=== PATIENT | male | born 1965 | race Caucasian/White ===

== ENCOUNTER 2017-05-24 17:14 | Emergency (ER) | payer MEDICAID, OTHER ==
[~2017-05-24] VITALS: Ht 177.8 cm; Wt 85.0 kg
[~2017-05-24 17:14] MED LIST: ALPR-138 PO; BACT800T5 PO; CEPH500C3 PO; LORT5TAB PO; NAPR550 PO; SULF-154 PO
[2017-05-24] MEDS ORDERED: SODIUM CHLOR 0.9% 1000 ML INJ 1,000 ML IV SCH (17:26)
[2017-05-24 17:28] VITALS: BP 165/84; PULSE 81; RESP 18; TEMP 98.4; O2SAT 97
[2017-05-24] MEDS ORDERED: FAMOTIDINE 20 MG/2 ML VIAL IV PUSH ONE (17:30)
[2017-05-24] MEDS ORDERED: RESP: ALBUTEROL 2.5 MG/3 ML NEB (SCH) INH ONE (17:30)
[2017-05-24] MEDS ORDERED: EPINEPHrine HCL (1:1000) 1 MG/ML VIAL IM ONE (17:30)
[2017-05-24] MEDS ORDERED: SODIUM CHLORIDE 0.9% FLUSH 10 ML FLUSH IV FLUSH PRN (17:30)
[2017-05-24 17:31] VITALS: O2SAT 97
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
[2017-05-24] MEDS ORDERED: HYDR-3366 PO (17:57)
[2017-05-24 18:25] VITALS: BP 131/65; PULSE 69; RESP 18; O2SAT 99
[2017-05-24] MEDS ORDERED: PRED-503 PO (18:35)
[2017-05-24] MEDS ORDERED: DIPH25CA PO (18:35)
[2017-05-24] MEDS ORDERED: EPIP0.3I IM (18:35)
[2017-05-24] MEDS ORDERED: ZANT150T2 PO (18:35)
[2017-05-24 19:14] VITALS: BP 119/61; PULSE 80; RESP 18; O2SAT 98
--- NOTE | 2017-05-24 19:19 | PD ---
Data Data Last Documented VS Vital Signs Date Time Temp Pulse Resp B/P (MAP) Pulse Ox O2 Delivery O2 Flow Rate FiO2 05/24/17 20:30 74 18 98 05/24/17 20:29 Room Air 05/24/17 17:28 98.4 Orders Orders Ecg Monitoring (05/24/17 17:26) Iv Access Insert/Monitor (05/24/17 17:26) Oximetry (05/24/17 17:26) Famotidine Inj (Pepcid Inj) (05/24/17 17:30) Albuterol Neb (Albuterol Neb) (05/24/17 17:30) Sodium Chlor 0.9% 1000 Ml Inj (Ns 1000 M (05/24/17 17:26) Sodium Chloride 0.9% Flush (Ns Flush) (05/24/17 17:30) Epinephrine (1:1000) Inj (Adrenalin (1:1 (05/24/17 17:30) Electrocardiogram (05/24/17 ) MDM Supervised Visit with RICKI: No Narrative Course and Dr. Gonsalves and discussed this patient with me at the end of his shift at 1900, is doing a three-hour observation after some chest tightness occurred after being stung by a wasp. Patient was reassessed briefly by me, oropharynx clear without swelling, lungs clear. The patient states is feeling 100% better and would like to go home. I discussed with him EpiPen use and criteria for use. Discussed when to call 911 and avoid bee stings. He is stable for discharge. Discussed symptomatic management going forward. Prescription have already been written by Dr. Gonsalves. Diagnosis Primary Impression: Anaphylaxis Patient Instructions: General Instructions Additional Instruction: Medications as directed. Follow-up with your primary physician. Return if symptoms worsen or progress. Scripts Ranitidine (Zantac) 150 Mg Tab 150 MG PO BID for Reduce Stomach Acid for 5 Days, #10 TAB 0 Refills Prov: Ibrahima Gonsalves MD 05/24/17 Diphenhydramine (Diphenhydramine) 25 Mg Cap 25 MG PO Q6H Y for ALLERGIES, #20 CAP 0 Refills Prov: Ibrahima Gonsalves MD 05/24/17 Prednisone (Deltasone) 20 Mg Tab 40 MG PO DAILY for 4 Days, #8 TAB 0 Refills Prov: Ibrahima Gonsalves MD 05/24/17 Epinephrine Inj (Epipen 2-Regulo Inj) 0.3 Mg/0.3 Ml Pfpen 0.3 MG IM ONCE Y for ALLERGIC REACTION, #1 PACK 0 Refills Prov: Ibrahima Gonsalves MD 05/24/17 Disposition: 01 DISCHARGE HOME Condition: Stable Jimmie Leary MD May 24, 2017 19:19
[2017-05-24 20:29] VITALS: BP 121/64; PULSE 74; RESP 18; O2SAT 98
--- NOTE | 2017-05-25 21:37 | EKG ---
Date Performed: 05/24/2017 Time Performed: 18:43:35 PTAGE: 52 years EKG: Sinus rhythm NORMAL ECG NO PREVIOUS TRACING DOCTOR: Mary Matos Interpretating Date/Time 05/25/2017 21:36:42
== END 2017-05-24 20:31 | disposition home or self-care (01) ==
LOC: PHED 17:14
DX: T63.441A Toxic effect of venom of bees, accidental (unintentional), initial encounter (principal); T78.2XXA Anaphylactic shock, unspecified, initial encounter
CPT/HCPCS: 93005; 94664; 96361; 96372; 96374; 99284; J0171; J7030; J7613